=== PATIENT | male | born 1970 | race Caucasian/White ===

== ENCOUNTER 2024-02-20 09:42 | Emergency (ER) | payer OTHER | END 2024-02-20 10:36 | LOC: CSHERS 09:42 → EEVIPCON 09:42 → CSHERS 10:36 | DX: S46.202A Unspecified injury of muscle, fascia and tendon of other parts of biceps, left arm, initial encounter (principal); X58.XXXA Exposure to other specified factors, initial encounter | CPT/HCPCS: 99284 ==